=== PATIENT | female | born 1965 | race Caucasian/White ===

== ENCOUNTER → 2020-12-19 | Outpatient (CLI) | payer OTHER ==
[~2020-12-19] MED LIST: ASPIRIN CHEWABL81 MG PO; COZAAR100 MG PO; CYMBALTA60 MG PO; ELIQUIS2.5 MG PO; FLONASE 0.05% N16 GM; GABAPENTIN300 MG PO; LORATADINE10 MG PO; OXYBUTYNIN CHLO15 MG PO; PERCOCET 5/325 T1 EA PO; SINGULAIR10 MG PO; TOPROL XL25 MG PO; ULTRAM50 MG PO; VITAMIN D250000 UNIT PO; VOLTAREN100 GM TP; ZYPREXA2.5 MG PO
[2020-12-19 17:13] LABS: HEMOGLOBIN 14.2 gm/dl (12.3-15.3); RED BLOOD COUNT 4.8 M/UL (4.00-5.10); WHITE BLOOD COUNT 11.8 K/UL (4.5-11.0)
== END ==
LOC: LAB 16:50
PROVIDERS: Nurse Practitioner Family
DX: T84.84XA Pain due to internal orthopedic prosthetic devices, implants and grafts, initial encounter (principal)
CPT/HCPCS: 36415; 85027; 85652; 86140